=== PATIENT | female | born 1970 | race African-American/Black ===

== ENCOUNTER 2018-09-08 23:24 | Emergency (ER) | payer MEDICAID ==
[~2018-09-08] VITALS: Ht 162.6 cm; Wt 55.0 kg
[2018-09-09] MEDS ORDERED: DIPHENHYDRAMINE 25MG CAPSULE PO ONE (01:30)
[2018-09-09 02:01] VITALS: BP 128/76
== END 2018-09-09 02:03 | disposition home or self-care (01) ==
LOC: ER 23:24
DX: R21 Rash and other nonspecific skin eruption (principal); F20.9 Schizophrenia, unspecified
CPT/HCPCS: 99283; Q0163

== ENCOUNTER 2018-11-23 17:49 | Emergency (ER) | payer MEDICAID ==
[~2018-11-23] VITALS: Ht 177.8 cm; Wt 90.0 kg
[2018-11-23] MEDS ORDERED: SODIUM CHLORIDE 0.9% 1,000 ML IV ONE (21:15)
[2018-11-23 23:39] LABS: EOSINOPHILS % 2.9 % (0.0-5.0); HEMATOCRIT. 34.6 % (36.0-48.0); HEMOGLOBIN. 11.5 g/dL (12.0-16.0); LYMPHOCYTES % 42.9 % (20.0-50.0); MEAN CORPUSCULAR HEMOGLOBIN 31.1 pg (28.0-32.0); MEAN CORPUSCULAR VOLUME 93.3 fL (81.0-99.0); MONOCYTES % 8.9 % (2.0-8.0); NEUTROPHILS % 44.3 % (40.0-76.0); PLATELET 194 x1000/uL (130-400); RED BLOOD CELL COUNT 3.71 mill/uL (4.2-5.4); RED CELL DISTRIBUTION WIDTH 16.9 % (11.6-14.6)
[2018-11-23 23:40] LABS: CHLORIDE 111 mEq/L (98-107)
[2018-11-23 23:43] LABS: ETHANOL BLOOD 15 mg/dL
[2018-11-24 00:05] LABS: *BARBITURATES SCREEN URINE NEGATIVE (NEGATIVE); *BENZODIAZEPINES SCREEN URINE NEGATIVE (NEGATIVE); METHADONE URINE SCREEN NEGATIVE (NEGATIVE); OPIATES URINE SCREEN NEGATIVE (NEGATIVE)
[2018-11-24 00:06] LABS: PHENCYCLIDINE URINE SCREEN NEGATIVE (NEGATIVE)
[2018-11-24 00:08] LABS: *AMPHETAMINES SCREEN URINE PRESUMTIVE POSITIVE (NEGATIVE); *COCAINE SCREEN URINE PRESUMTIVE POSITIVE (NEGATIVE); CANNABINOID URINE SCREEN PRESUMTIVE POSITIVE (NEGATIVE)
[2018-11-24 12:49] LABS: CLARITY URINE CLEAR (CLEAR); COLOR URINE YELLOW (YELLOW); KETONES URINE NEGATIVE (NEGATIVE); LEUKOCYTE ESTERASE URINE NEGATIVE (NEGATIVE); NITRITE URINE NEGATIVE (NEGATIVE); OCCULT BLOOD URINE 3+ (NEGATIVE); PROTEIN URINE NEGATIVE (NEGATIVE); SPECIFIC GRAVITY URINE 1.021 (1.005-1.030)
[2018-11-24] MEDS ORDERED: LORAZEPAM 1MG TABLET PO ONE (14:00)
[2018-11-24] MEDS: LORAZEPAM 1MG TABLET PO PRN (20:00)
[2018-11-25] MEDS ORDERED: LORAZEPAM 1MG TABLET PO ONE (10:00)
[2018-11-25] MEDS: LORAZEPAM 1MG TABLET PO PRN (10:14)
[2018-11-26 03:43] VITALS: BP 118/77
== END 2018-11-26 03:45 ==
LOC: ER 17:49
DX: R45.851 Suicidal ideations (principal); F32.9 Major depressive disorder, single episode, unspecified; F19.10 Other psychoactive substance abuse, uncomplicated; R45.850 Homicidal ideations; F17.200 Nicotine dependence, unspecified, uncomplicated; F12.10 Cannabis abuse, uncomplicated; F20.9 Schizophrenia, unspecified
CPT/HCPCS: 36415; 80048; 80305; 80307; 80320; 80329; 81025; 85025; 99284; J7030; G0480

== ENCOUNTER 2024-04-10 17:12 | Emergency (ER) | payer MEDICAID ==
[~2024-04-10] VITALS: Ht 172.7 cm; Wt 72.0 kg
[2024-04-10 17:14] VITALS: O2SAT 98
[2024-04-10 18:28] LABS: CLARITY URINE CLEAR (CLEAR); COLOR URINE YELLOW (YELLOW); GLUCOSE URINE NEGATIVE (NEGATIVE); KETONES URINE NEGATIVE (NEGATIVE); LEUKOCYTE ESTERASE URINE NEGATIVE (NEGATIVE); NITRITE URINE NEGATIVE (NEGATIVE); OCCULT BLOOD URINE NEGATIVE (NEGATIVE); PH URINE 8.5 (4.5-8.0); PROTEIN URINE NEGATIVE (NEGATIVE); SPECIFIC GRAVITY URINE 1.003 (1.005-1.030)
[2024-04-10 18:40] LABS: *AMPHETAMINES SCREEN URINE PRESUMPTIVE POSITIVE (NEGATIVE); *BARBITURATES SCREEN URINE NEGATIVE (NEGATIVE); *BENZODIAZEPINES SCREEN URINE NEGATIVE (NEGATIVE); *COCAINE SCREEN URINE NEGATIVE (NEGATIVE); CANNABINOID URINE SCREEN NEGATIVE (NEGATIVE); ECSTASY MDMA SCREEN URINE NEGATIVE (NEGATIVE); METHADONE URINE SCREEN NEGATIVE (NEGATIVE); OPIATES URINE SCREEN NEGATIVE (NEGATIVE); PHENCYCLIDINE URINE SCREEN NEGATIVE (NEGATIVE)
[2024-04-10 20:27] LABS: BASOPHILS % 0.6 % (0.0-2.0); DIFFERENTIAL COMMENT 0; EOSINOPHILS % 2.4 % (0.0-5.0); HEMATOCRIT. 37.1 % (36.0-48.0); HEMOGLOBIN. 12.7 g/dL (12.0-16.0); MEAN CORPUSCULAR HEMOGLOBIN 34.3 pg (28.0-32.0); MEAN CORPUSCULAR HGB CONC 34.3 g/dL (31.0-37.0); MEAN CORPUSCULAR VOLUME 100.1 fL (81.0-99.0); MEAN PLATELET VOLUME 7.5 fl (7.4-10.4); MONOCYTES % 8.8 % (2.0-8.0); NEUTROPHILS % 48.2 % (40.0-76.0); PLATELET 283 x1000/uL (130-400); RED BLOOD CELL COUNT 3.71 mill/uL (4.2-5.4); RED CELL DISTRIBUTION WIDTH 14.3 % (11.6-14.6); WHITE BLOOD COUNT 7.5 x1000/uL (4.5-11.0)
[2024-04-10 20:31] LABS: CHLORIDE 108 mEq/L (98-107); POTASSIUM 3.4 mEq/L (3.5-5.1); SODIUM 144 mEq/L (136-145)
[2024-04-10 20:33] LABS: CALCIUM 8.9 mg/dL (8.7-10.4); CARBON DIOXIDE 28 mEq/L (21-32)
[2024-04-10 20:37] LABS: CREATININE 0.7 mg/dL (0.6-1.0)
[2024-04-10 20:38] LABS: ETHANOL BLOOD 108 mg/dL (<10); GLUCOSE 88 mg/dL (70-105); UREA NITROGEN BLOOD 9 mg/dL (9-23)
[2024-04-10 20:40] LABS: ACETAMINOPHEN < 2 ug/mL (10-30)
[2024-04-11] MEDS: ZIPRASIDONE MESYLATE 20MG/VIAL IM ONE (00:49)
[2024-04-11 01:01] LABS: HCG SCREEN NEGATIVE
[2024-04-11] MEDS: LORAZEPAM 0.5MG TABLET PO ONE ×2 (08:17→13:30)
[2024-04-11] MEDS: LORAZEPAM 1MG TABLET PO NR (18:39)
[2024-04-11 19:57] VITALS: BP 138/90; PULSE 96; RESP 18; TEMP 35.2; O2SAT 99
[2024-04-11] MEDS ORDERED: OLANZAPINE 5MG TABLET PO SCH (21:00)
== END 2024-04-11 20:16 ==
LOC: ER 17:12
DX: R45.851 Suicidal ideations (principal); F12.10 Cannabis abuse, uncomplicated; Z20.822 Contact with and (suspected) exposure to COVID-19; Z86.59 Personal history of other mental and behavioral disorders
CPT/HCPCS: 80305; 80048; 81003; 80307; 80329; 80320; 84703; 85025; 36415; 99285; 87426; 96372; J3486; G0480

== ENCOUNTER 2025-01-15 17:35 | Emergency (ER) | payer MEDICAID, OTHER ==
[~2025-01-15] VITALS: Ht 175.3 cm; Wt 79.0 kg
[2025-01-15 17:37] VITALS: O2SAT 95
[2025-01-15 18:21] LABS: *AMPHETAMINES SCREEN URINE NEGATIVE (NEGATIVE); *BARBITURATES SCREEN URINE NEGATIVE (NEGATIVE); *BENZODIAZEPINES SCREEN URINE NEGATIVE (NEGATIVE); *COCAINE SCREEN URINE NEGATIVE (NEGATIVE)
[2025-01-15 18:22] LABS: CANNABINOID URINE SCREEN NEGATIVE (NEGATIVE); ECSTASY MDMA SCREEN URINE NEGATIVE (NEGATIVE); METHADONE URINE SCREEN NEGATIVE (NEGATIVE); OPIATES URINE SCREEN NEGATIVE (NEGATIVE); PHENCYCLIDINE URINE SCREEN NEGATIVE (NEGATIVE)
[2025-01-15 18:28] LABS: CLARITY URINE CLEAR (CLEAR); COLOR URINE YELLOW (YELLOW); GLUCOSE URINE NEGATIVE (NEGATIVE); KETONES URINE NEGATIVE (NEGATIVE); OCCULT BLOOD URINE TRACE (NEGATIVE); PH URINE 5.5 (4.5-8.0); PROTEIN URINE NEGATIVE (NEGATIVE); SPECIFIC GRAVITY URINE 1.005 (1.005-1.030)
[2025-01-15 18:29] LABS: LEUKOCYTE ESTERASE URINE TRACE (NEGATIVE); NITRITE URINE NEGATIVE (NEGATIVE); UROBILINOGEN URINE 0.2 E.U./dL (0.2-1.0)
[2025-01-15 18:44] LABS: BASOPHILS % 0.7 % (0.0-2.0); EOSINOPHILS % 2.5 % (0.0-5.0); HEMATOCRIT. 43.6 % (36.0-48.0); HEMOGLOBIN. 14.4 g/dL (12.0-16.0); LYMPHOCYTES % 42.8 % (20.0-50.0); MEAN PLATELET VOLUME 7.5 fl (7.4-10.4); MONOCYTES % 7.2 % (2.0-8.0); NEUTROPHILS % 46.8 % (40.0-76.0); PLATELET 262 x1000/uL (130-400); RED BLOOD CELL COUNT 4.35 mill/uL (4.2-5.4); RED CELL DISTRIBUTION WIDTH 13.0 % (11.6-14.6)
[2025-01-15 18:44] LABS: WBC URINE 0-2 /hpf (0-2)
[2025-01-15 18:45] LABS: BACTERIA URINE TRACE; SQUAMOUS EPITHELIAL CELL URINE RARE /lpf (RARE/1+)
[2025-01-15 19:10] LABS: CREATININE 0.9 mg/dL (0.6-1.0); ETHANOL BLOOD 153 mg/dL (<10); UREA NITROGEN BLOOD 8 mg/dL (9-23)
[2025-01-15 19:11] LABS: ASPARTATE AMINOTRANSFERASE 53 IU/L (<34)
[2025-01-15 19:12] LABS: BILIRUBIN DIRECT < 0.1 mg/dL (<=3.0); BILIRUBIN TOTAL 0.3 mg/dL (0.1-1.0); HCG SCREEN NEGATIVE; PROTEIN TOTAL 7.4 g/dL (6.0-8.3)
[2025-01-15] MEDS: LORAZEPAM 1MG TABLET PO NR (19:13)
[2025-01-16] MEDS: TRAZODONE HCL 50MG TABLET PO ONE (04:09)
[2025-01-16] MEDS: DOCUSATE SODIUM 100MG CAPSULE PO ONE (04:09)
[2025-01-16 06:22] VITALS: BP 119/76; PULSE 85; RESP 14; TEMP 37.5; O2SAT 97
== END 2025-01-16 06:35 ==
LOC: ER 17:35
DX: R45.851 Suicidal ideations (principal); F41.9 Anxiety disorder, unspecified; F20.9 Schizophrenia, unspecified; F10.129 Alcohol abuse with intoxication, unspecified; Z20.822 Contact with and (suspected) exposure to COVID-19; Z79.899 Other long term (current) drug therapy; Y90.9 Presence of alcohol in blood, level not specified
CPT/HCPCS: 36415; 80048; 80076; 80305; 80307; 80320; 80329; 81003; 84703; 85025; 87426; 93005; 99285; G0480